=== PATIENT | male | born 1995 | race Caucasian/White ===

== ENCOUNTER 2019-03-13 11:23 | Outpatient (CLI) | payer OTHER ==
[2019-03-13 12:06] VITALS: BP 100/60
--- NOTE | 2019-03-13 12:06 | CONSULTATION NOTE ---
Information from patient questionnaire entered by Heydi Khalil. I have reviewed and concur with the information entered by Heydi Khalil. This document represents the service I personally performed and the decisions made by me, Zonia Rodriguez MD, [facility]. - History of Present Illness Chief Complaint: Snoring, Observed pauses in breathing, Fatigue The patient tells me that he normally goes to bed around 9 am, and it takes him approximately 30-45 minutes to fall asleep. He has been told that he snores loudly and irregularly at night. He has been observed to stop breathing in his sleep. His can still sleep in the same bed. He can recall waking up on the average of unknown times during the night. Most of the time he wakes up because of his own snoring. There is not a lot of tossing and turning in his sleep. Generally there is no recollection of dreams. He usually wakes up at 5pm and does not feel refreshed. He usually does not have a morning headache. During the day he complains of feeling sleepy and fatigued. He has never fallen asleep while driving nor has any accident due to sleepiness. He usually does not take naps during the day. If he naps, upon falling asleep during the day he denies having vivid dreams. There is no somniloquy (sleep talking) or somnambulism (sleep walking). He has never experienced sleep paralysis, cataplexy, or symptoms of restless leg syndrome. He reports having impaired concentration during the day. [place] Sleepiness Scale Score: 9 - Past Medical History Past Medical History: Other (adenoidectomy) - Allergies/Home Medications Allergies and home medications reviewed: Yes - Social History The patient's occupation is a AT. Patient is and lives in [place]. Smoked in the past 12 months: No Alcohol use: Yes Amount and frequency: 1-2 drinks every other week Caffeine use: No - Family History Family history of sleep disordered breathing: Yes Family Hx Sleep Apnea: Mother: Snoring, Sleep apnea - Treated, Sleep apnea - Untreated (refuses CPAP) - Review of Systems Weight gain over past 5 years: 25 Cardiovascular: denies: high blood pressure, palpitations, chest pain, irregular heart rate or pulse, leg or foot swelling, have to sleep sitting up, other: Respiratory: denies: shortness of breath, wheeze, sputum production, chronic cough, other: Gastrointestinal: denies: heartburn, difficulty swallowing, nausea, vomitting, diarrhea, abdominal pain, other: Urinary: denies: incontinence, frequency, urgency, impotence, other: Neurological: denies: headaches, seizure, head trauma, disorientation, speech dysfunction, gait or balance problems, fainting or unconsciousness, other: Psychiatric: denies: Attention Deficit Hyperactivity, anxiety, depression, mood disorder, claustrophobia, other: Ear/Nose/Throat: reports: wisdom teeth removed Endocrine: reports: sluggishness Musculoskeletal: denies: joint pain, neck pain, back pain, joint swelling, muscle pain or cramping, mobility problems, other: - Physical Examination Vital signs obtained and documented by: Dr. Rodriguez Blood Pressure: 100/60 Cuff size: regular Heart Rate: 68 O2 Saturation: 98 Height: 5 ft 6 in Weight (kg): 102.965 kg Body Mass Index: 36.6 BMI Classification: Class 2 Neck circumference: 15.25 Mood/affect: normal HEENT: No craniofacial malformation Nostrils: patent to airflow Turbinates: normal Septum: midline Mouth and throat: narrow oropharynx Soft palate: long Hard palate: normal Uvula: normal Tongue: normal in size Tonsils: small Chin and jaw: normal size and position Neck: normal w/o lymphadenopathy or thyromegaly Heart: regular rate and rhythm Lungs: clear bilaterally Abdomen: soft, non-tender Extremities: no edema or clubbing Neurologic: intact, no focal deficits - Impression 1. Suspected Obstructive Sleep Apnea-Hypopnea Syndrome, as previously diagnose d.loud and irregular snoring, observed cessation of breath while asleep, unrefreshed sleep, and excessive daytime sleepiness. Narrow oropharynx and obesity are common predisposing factors for obstructive sleep apnea-hypopnea syndrome. I recommend proceeding to polysomnography to confirm the diagnosis and to assess severity. If the patient has significant sleep disordered breathing, a manual CPAP titration study will also be performed to find the optimal treatment pressure. I informed the patient of what the sleep studies involve and after some discussion, obtained agreement to proceed. The p athophysiology of obstructive sleep apnea-hypopnea syndrome was discussed with the patient and health risks of cardiovascular and cerebrovascular disease if not treated. Risks of drowsy driving discussed in detail and patient advised to avoid long distance driving and to caul puller at the first sign of drowsiness. Patient agreed to plan. - Plan Schedule polysomnography +/- manual CPAP titration study and return in 1-2 weeks after the study to discuss result and initiate therapy. Avoid long distance driving or driving when feeling sleepy. Avoid alcohol, sedative and muscle relaxant around bedtime. Attempt to lose weight. Review instructions provided by trained office staff on how to prepare for the sleep study. Return for follow-up after sleep study completed. I spent 100% of this 15 minute visit face to face with the patient with greater than 50% of this was spent time counseling the patient and coordination of care.
== END 2019-03-13 11:24 | disposition home or self-care (01) ==
LOC: SC 11:23
PROVIDERS: ATTEND Internal Medicine Pulmonary Disease
DX: R06.83 Snoring (principal); R06.81 Apnea, not elsewhere classified; G47.8 Other sleep disorders; G47.10 Hypersomnia, unspecified
CPT/HCPCS: 99203; 99212

== ENCOUNTER 2019-03-22 07:02 | Outpatient (CLI) | payer OTHER | END 2019-03-22 07:03 | disposition home or self-care (01) | LOC: SC 07:02 | PROVIDERS: ATTEND Internal Medicine Pulmonary Disease | DX: G47.33 Obstructive sleep apnea (adult) (pediatric) (principal); G47.61 Periodic limb movement disorder; E66.9 Obesity, unspecified; Z68.36 Body mass index [BMI] 36.0-36.9, adult | CPT/HCPCS: 95810 ==

== ENCOUNTER 2019-03-28 16:07 | Outpatient (CLI) | payer OTHER ==
--- NOTE | 2019-03-28 16:24 | CONSULTATION NOTE ---
Information from patient questionnaire entered by Heydi Khalil. I have reviewed and concur with the information entered by Heydi Khalil. This document represents the service I personally performed and the decisions made by me, Zonia Rodriguez MD, [facility]. - History of Present Illness HPI: Mr. Barakat returned for follow up of the sleep study he had on 03/22/2019. The polysomnography showed that the patient had normal sleep efficiency. The sleep architecture was relatively normal as well considering the first-night effect. Respiratory monitoring showed mild obstructive sleep apnea-hypopnea (AHI = 6.6) associated with oxyhemoglobin desaturation and mild hypoxia (mila oxygen saturation of 88%) but not sleep fragmentation. The respiratory events occurred mainly during REM sleep. The patient only slept supine during this study (supine AHI = 6.6; non-supine = 0.00). Snore was moderate to loud in intensity. There was mild periodic leg movement of sleep not associated with sleep fragmentation. Cardiac rhythm was normal sinus rhythm without significant arrhythmia. No abnormal behavior (parasomnia) observed during the night. The patient was informed of these findings. I explained to him the pathophysiology behind obstructive sleep apnea. We then spent quite a bit of time discussing different treatment options. For mild obstructive sleep apnea, surgery and oral appliance are alternatives to nasal CPAP therapy but in moderate or severe cases, nasal CPAP is the most effective and reliable treatment. Weight loss in an obese individual is strongly recommended. After some discussion, he opted to go with the nasal CPAP therapy. I explained to him how CPAP machine works and what to expect when using the machine. PE: No significant change on the physical exam today. IMPRESSION: 1. Obstructive Sleep Apnea-Hypopnea Syndrome, mild, associated with mild hypoxemia. Possibly, this is the cause of the patients symptoms of unrefreshed sleep, and excessive daytime sleepiness. As mentioned above, the patient will be scheduled to return for a manual CPAP/BiPAP titration study. PLAN: 1. Return for a manual CPAP/BiPAP titration study 2. Attempt to lose weight and avoid alcohol consumption near bedtime. 3. Return for a follow up after the sleep study. This visit is time-based and I spent 15 minutes with the patient and more than 50% of the time was spent counseling the patient. Initial [place] Sleepiness Scale score: 9 Current [place] Sleepiness Scale score: 9 - Allergies/Medications Allergies and home medications reviewed: Yes - Review of Systems Review of systems same as previous: Yes
== END 2019-03-28 16:08 | disposition home or self-care (01) ==
LOC: SC 16:07
PROVIDERS: ATTEND Internal Medicine Pulmonary Disease
DX: G47.33 Obstructive sleep apnea (adult) (pediatric) (principal)
CPT/HCPCS: 99212; 99213

== ENCOUNTER 2019-04-05 07:06 | Outpatient (CLI) | payer OTHER | END 2019-04-05 07:07 | disposition home or self-care (01) | LOC: SC 07:06 | PROVIDERS: ATTEND Internal Medicine Pulmonary Disease | DX: G47.33 Obstructive sleep apnea (adult) (pediatric) (principal); E66.9 Obesity, unspecified; Z68.36 Body mass index [BMI] 36.0-36.9, adult | CPT/HCPCS: 95811 ==

== ENCOUNTER 2019-04-10 16:11 | Outpatient (CLI) | payer OTHER ==
[2019-04-10 17:25] VITALS: BP 120/76
--- NOTE | 2019-04-10 17:25 | SLEEP CARE CONSULTATION ---
Information from patient questionnaire entered by Heydi Khalil. I have reviewed and concur with the information entered by Heydi Khalil. This document represents the service I personally performed and the decisions made by me, Hilary Barton RN, MSN, [employer]. History of Present Illness Initial [place] Sleepiness Scale score: 9 Current [place] Sleepiness Scale score: 8 Additional HPI information: JONATHAN MACKAY returns for follow up of the recently performed manual titration study. He was informed of the titration study findings as noted in study data. I explained the pathophysiology behind obstructive sleep apnea and results of his study. He was pleased how well he felt the next day after study. I reviewed the impact of weight changes on sleep apnea and strongly recommended losing weight. He is looking forward to using CPAP. I explained how CPAP machine works with sample devices Funidelia Dreamstation and Levlr [id number] and what to expect when using the machine. Using CPAP every night in order to get used to it was emphasized. Patient advised to put CPAP mask on before getting into bed so as not to fall asleep without CPAP. To assist acclimation to CPAP use, it could also be used for a short time during day while reading or watching TV. The patient was instructed to call the CPAP supplier to discuss any mechanical problem that may occur. If the mask given is uncomfortable or is difficult to keep on through the night even with adjustment, contact the CPAP supplier as many will replace with another mask style if notified before 30 days. If snoring or perceives is not getting enough air or too much air from the machine, notify this office. [facility] patient education PAP tips reviewed and given to patient. Patient counseled not drink alcohol less than 4 hours before bedtime as it can increase snoring and apnea. Patient was cautioned about risks of drowsy driving until sleepiness symptoms resolve. Patient denies drowsy driving. [facility] patient education on snoring and sleep apnea given and reviewed. Sleep Study - Polysomnography Polysomnography findings: The quality of the study is good. CPAP was initiated at 4 cmH2O and titrated up to CPAP at 11 cmH2O. CPAP at 10 cmH2O appeared to be optimal (AHI of 0.3 per hour on the pressure). There was supine REM sleep on the pressure. Oxygen saturation was normal throughout the night. Lower CPAP settings appeared adequate as well. The patient tolerated positive airway pressure therapy very well. The patients sleep efficiency was normal. The sleep architecture was relatively normal as well considering the first night effect. There was no significant periodic limb movement of sleep. Cardiac rhythm was normal sinus rhythm without significant arrhythmia. No abnormal behavior (parasomnia) observed during the night. Allergies and Home Medications Known drug allergies: No Home medication list reviewed: Yes (no medications ) Review of Systems Review of systems same as previous: Yes Physical Exam Blood Pressure: 120/76 Heart Rate: 77 O2 Saturation: 98 Height: 5 ft 6 in Weight (kg): 102.421 kg Body Mass Index: 36.4 BMI Classification: Class 2 Impression and Plan 1. Obstructive Sleep Apnea-Hypopnea Syndrome, mild , with lowest oxygen saturation of 88% and adequately controlled with CPAP of [id number]. Obviously this is the cause of the patients symptoms of unrefreshed sleep, and excessive daytime sleepiness. As mentioned above, the patient will be started on nasal autoCPAP therapy with pressure set at [address] Rodriguez made a autoCPAP prescription at last follow up and it was faxed to [facility] but patient has not heard from them. He called this morning and they stated they had not received the order. My staff will clarify and a new CPAP pressure sent. If still problems with getting set up and he does not hear this week,he is to contact this office and then we can transfer to another company. Compliance guidelines also reviewed. A copy of compliance guidelines will be sent to patient as not available at check out. He was advised to contact this office as soon as set up with CPAP so a compliance follow up can be made. * Nasal auto CPAP therapy, pressure at 10 cm H2O. * Attempt to lose weight. * Avoid alcohol consumption near bedtime. * Contact this office is he does not hear from [facility] this week. * The patient is again cautioned about driving until sleepiness completely resolves. * Return 6 weeks after CPAP obtained. I will assess response to therapy and compliance at that time. I spent 100% of this 25 minute visit face to face with the patient with greater than 50% of this was spent time counseling the patient and coordination of care.
== END 2019-04-10 16:12 | disposition home or self-care (01) ==
LOC: SC 16:11
PROVIDERS: ATTEND Nurse Practitioner Family
DX: G47.33 Obstructive sleep apnea (adult) (pediatric) (principal)
CPT/HCPCS: 99212; 99214